=== PATIENT | female | born 1975 | race Caucasian/White ===

== ENCOUNTER → 2020-07-06 08:49 | Outpatient (BNVA) | payer SELFPAY | PROVIDERS: Visit Provider Dietitian, Registered | DX: Z76.89 Persons encountering health services in other specified circumstances (principal) ==

== ENCOUNTER → 2020-10-15 08:09 | Outpatient (BNVA) | payer OTHER, SELFPAY | PROVIDERS: PCP Internal Medicine; Visit Provider Physician Assistant ==